=== PATIENT | male | born 1945 | race Caucasian/White ===

== ENCOUNTER → 2017-02-27 | Outpatient (CLI) | payer OTHER ==
--- NOTE | 2017-02-28 07:04 | REP ---
Clinical: Lung screening. Comparison: None Technique: Axial low-dose noncontrast images from the thoracic inlet to the upper abdomen using lung screening technique. Findings: The lung yu demonstrate diffuse moderate emphysematous disease with biapical, right middle lobe and bibasilar scarring. Small focus of atelectasis in the right lower lobe is appreciated. Few small noncalcified nodular densities in the posteromedial left lower lobe measure up to 6 mm. No effusion. Tracheobronchial tree is patent. Impression: Lung-RADS category 3S. Moderate emphysematous disease and chronic scarring along with few small noncalcified nodules in the posteromedial left lower lobe up to 6 mm. Management recommendations includes 6-month low-dose CT follow-up. Signed by Frantz Olsen MD 02/28/2017 06:55 A
== END ==
LOC: M RAD 10:44
PROVIDERS: ATTEND Family Medicine
DX: Z12.2 Encounter for screening for malignant neoplasm of respiratory organs (principal); J43.9 Emphysema, unspecified; F17.210 Nicotine dependence, cigarettes, uncomplicated

== ENCOUNTER → 2017-03-17 | Outpatient (CLI) | payer OTHER ==
--- NOTE | 2017-03-17 09:16 | PFTRPT ---
Tech: Zeenat Ferris [employer] Age: 71 Sex: Male Race: Height: 66.00 Inches Weight: 151.00 Lbs BSA: 1.77 Diagnosis: J44.9 PULMONARY FUNCTION REPORT ORDERING PROVIDER: Calixto Maciel MD DATE OF SERVICE: 02/14/17 NOTE: The patient did use inhalers prior to the study, but did not know which ones. SPIROMETRY: Pre and post bronchodilator study of excellent technical quality. The forced vital capacity is normal. The FEV1 is generally in proportion. The obstructive index is, therefore, normal. FLOW VOLUME LOOP: The expiratory limb of the flow volume loop is reasonably normal. LUNG VOLUMES: The total lung capacity is borderline elevated. The residual volume is in proportion. DIFFUSION CAPACITY: The diffusion capacity is significantly reduced and does not correct for alveolar volume. HEMOGLOBIN: No hemoglobin is available for correction. AIRWAY MECHANICS: Airways resistance and conductance are normal. IMPRESSION: Diffusion capacity impairment. Please correlate clinically. MTDD
== END ==
LOC: M CARPUL 08:28
PROVIDERS: ATTEND Family Medicine
DX: J44.9 Chronic obstructive pulmonary disease, unspecified (principal)

== ENCOUNTER → 2017-09-26 | Outpatient (CLI) | payer OTHER | LOC: M RAD 13:02 | DX: R91.8 Other nonspecific abnormal finding of lung field (principal) | CPT/HCPCS: 71250 ==

== ENCOUNTER → 2017-12-31 | Outpatient (REF) | payer OTHER ==
[2017-12-31 17:20] LABS: HEMATOCRIT 52.3 % (42.0-52.0); HEMOGLOBIN 17.4 g/dl (13.5-17.5); MEAN CORPUSCULAR HEMOGLOBIN 28.8 pg (27.0-33.0); MEAN CORPUSCULAR HGB CONC 33.3 g/dl (32.0-36.5); MEAN CORPUSCULAR VOLUME 86.6 fl (80.0-96.0); PLATELET COUNT, AUTOMATED 264 10^3/uL (150-450); RED BLOOD COUNT 6.04 10^6/uL (4.30-6.10); RED CELL DISTRIBUTION WIDTH 13.9 % (11.5-14.5); WHITE BLOOD COUNT 8.6 10^3/uL (4.0-10.0)
[2017-12-31 17:38] LABS: ESTIMATED AVERAGE GLUCOSE 123 MG/DL (60-110); HEMOGLOBIN A1c 5.9 %
[2017-12-31 18:00] LABS: ALKALINE PHOSPHATASE 81 U/L (45-117); ALT/SGPT 15 U/L (12-78); AST/SGOT 18 U/L (7-37); BILIRUBIN,TOTAL 0.5 MG/DL (0.2-1.0); CALCIUM LEVEL 9.2 MG/DL (8.8-10.2); CARBON DIOXIDE LEVEL 29 MEQ/L (21-32); CHLORIDE LEVEL 107 MEQ/L (98-107); CHOLESTEROL LEVEL 175 MG/DL (<200); CREATININE FOR GFR 1.01 MG/DL (0.70-1.30); GLUCOSE, FASTING 91 MG/DL (70-100); POTASSIUM SERUM 4.5 MEQ/L (3.5-5.1); SODIUM LEVEL 142 MEQ/L (136-145); TOTAL PROTEIN 8.3 GM/DL (6.4-8.2); TRIGLYCERIDES LEVEL 151 MG/DL (<150)
[2017-12-31 18:06] LABS: CREATININE, URINE 23.2 MG/DL; MALB URINE SIEMENS < 5.0 MG/L; MAU/CREAT RATIO 21.5 MCG/MG (0.0-30.0)
[2017-12-31 18:25] LABS: BLOOD UREA NITROGEN 13 MG/DL (7-18)
[2017-12-31 20:45] LABS: ANION GAP 6 MEQ/L (8-16); CHOLESTEROL RISK RATIO 3.645 (<5); HDL CHOLESTEROL 48 MG/DL (>40); LDL CHOLESTEROL 96.8 MG/DL (<100); NON-HDL-C 127 MG/DL
[2017-12-31 20:46] LABS: ALBUMIN 4.4 GM/DL (3.2-5.2); ALBUMIN/GLOBULIN RATIO 1.13 (1.00-1.93)
== END ==
LOC: M SFHCLERA 09:36
DX: I10 Essential (primary) hypertension (principal); F39 Unspecified mood [affective] disorder; E78.5 Hyperlipidemia, unspecified; Z23 Encounter for immunization; Z79.82 Long term (current) use of aspirin; Z79.899 Other long term (current) drug therapy
CPT/HCPCS: 84443

== ENCOUNTER → 2018-06-10 | Outpatient (CLI) | payer OTHER | LOC: M EKG 13:27 | DX: Z01.818 Encounter for other preprocedural examination (principal) | CPT/HCPCS: 93005 ==

== ENCOUNTER 2018-06-16 10:15 | Day surgery (SDC) | payer OTHER ==
[2018-06-16] MEDS ORDERED: PROPOFOL 200 MG/20 ML VIAL As Ordered (10:42)
[2018-06-16] MEDS ORDERED: ROCURONIUM BROMIDE 50 MG/5 ML VIAL As Ordered (10:42)
[2018-06-16] MEDS ORDERED: dexameTHASONE 4 MG/ML 1ML VIAL (J1100) As Ordered (10:43)
[2018-06-16] MEDS ORDERED: ONDANSETRON 4MG/2ML VIAL (J2405) As Ordered (10:43)
[2018-06-16] MEDS ORDERED: LIDOCAINE 2% INJ 100 MG/5 ML SDV (FOR ANES.) As Ordered (10:43)
[2018-06-16] MEDS ORDERED: fentaNYL 250 MCG/5 ML INJECTION (J3010) As Ordered (10:43)
[2018-06-16] MEDS ORDERED: MIDAZOLAM INJ 2 MG/2 ML VIAL (J2250) As Ordered (10:43)
[2018-06-16] MEDS: LR 1,000 ML IV (11:26)
[2018-06-16] MEDS: ceFAZolin SOD 1 GM in D5W MINI-BAG PLUS 50 ML IV (12:32)
[2018-06-16] MEDS ORDERED: PHENYLephrine HCL 500 MCG/5 ML (100MCG/ML) SYRINGE (J2370) As Ordered (12:46)
[2018-06-16] MEDS ORDERED: ePHEDrine SULFATE 25 MG/5 ML(5MG/ML) SYRINGE As Ordered (12:46)
[2018-06-16] MEDS ORDERED: HYDROmorphone HCL 2 MG/ML 1ML VIAL (J1170) As Ordered (13:02)
[2018-06-16] MEDS ORDERED: GLYCOPYRROLATE INJ 0.2 MG/ML 2 ML VIAL As Ordered (13:02)
[2018-06-16] MEDS ORDERED: NEOSTIGMINE 10 MG/10 ML VIAL (J2710) As Ordered (13:02)
[2018-06-16] MEDS ORDERED: KETOROLAC 60 MG/2 ML VIAL (J1885) As Ordered (13:02)
[2018-06-16] MEDS: BUPIVACAINE/EPIN 0.25% 30 ML VIAL As Ordered (13:30)
[2018-06-16] MEDS ORDERED: SUGAMMADEX SODIUM 500 MG/5 ML VIAL (BRIDION) As Ordered (13:33)
[2018-06-16] MEDS ORDERED: LR 1,000 ML IV ×2 (14:15)
[2018-06-16] MEDS ORDERED: PERCOCET 5MG/325MG TAB PO (14:15)
[2018-06-16] MEDS ORDERED: NORCO, ANEXSIA 5/325MG TABLET (HYDROcodone/ACETAMINOPHEN) PO (14:15)
[2018-06-16] MEDS ORDERED: fentaNYL 100 MCG/2 ML INJECTION (J3010) IV (14:15)
[2018-06-16] MEDS ORDERED: ONDANSETRON 4MG/2ML VIAL (J2405) IV ×2 (14:15)
== END 2018-06-16 15:45 | disposition home or self-care (01) ==
LOC: M SDC 10:15
DX: K40.90 Unilateral inguinal hernia, without obstruction or gangrene, not specified as recurrent (principal); E78.00 Pure hypercholesterolemia, unspecified; I10 Essential (primary) hypertension; F41.9 Anxiety disorder, unspecified; F32.9 Major depressive disorder, single episode, unspecified; M54.9 Dorsalgia, unspecified; N40.0 Benign prostatic hyperplasia without lower urinary tract symptoms; Z79.899 Other long term (current) drug therapy; Z79.82 Long term (current) use of aspirin; Z87.81 Personal history of (healed) traumatic fracture; Z72.0 Tobacco use
CPT/HCPCS: 49650

== ENCOUNTER → 2018-10-23 | Outpatient (CLI) | payer MEDICARE ==
[~2018-10-23] MED LIST: AMLO10TA5; ASPI1TAB PO; FLOM0.4C39; LISI40TA; MIRT30TA3; SIMV10TA2
--- NOTE | 2018-10-23 10:57 | REP ---
LOW-DOSE LUNG CANCER SCREENING CHEST CT WITHOUT CONTRAST: HISTORY: Personal history of nicotine dependence. Comparison CT studies are from September 26, 2017 and February 27, 2017. CT FINDINGS: Moderate emphysematous changes are seen hyper inflating the lungs bilaterally particularly in the upper lobes. There are linear fibrotic changes in the right lower lobe and right middle lobe today unchanged from the prior study. There are three adjacent noncalcified pulmonary nodules in the left lower lobe posteriorly and medially behind the descending aorta. These are unchanged in the interval. The largest measures 6 mm. No new pulmonary nodule is appreciated. IMPRESSION: The previously noted left lower lobe nodules have demonstrated over 2 years of stability and can be considered benign. COPD changes. Lung RADS category 2 benign findings. Repeat screening study suggested in 1 year. Electronically Signed by Ari Ross MD 10/23/2018 04:20 P
== END ==
LOC: M RAD 09:12
PROVIDERS: ATTEND Family Medicine
DX: Z12.2 Encounter for screening for malignant neoplasm of respiratory organs (principal); J44.9 Chronic obstructive pulmonary disease, unspecified; Z87.891 Personal history of nicotine dependence

== ENCOUNTER → 2019-01-05 | Outpatient (REF) | payer MEDICARE ==
[~2019-01-05] MED LIST changes: +ACET325C PO; +AMLO10TA5 PO; -ASPI1TAB PO; +ASPI81TA26 PO; +FLOM0.4C39 PO; +LISI40TA PO; +MIRT1TAB16 PO; +SIMV10TA2 PO
[2019-01-05 11:22] LABS: BASO # 0.1 10^3/uL (0.0-0.2); BASO % 1.3 % (0.0-1.0); EOS # 0.1 10^3/uL (0.0-0.50); EOS % 1.6 % (0.0-3.0); HEMATOCRIT 46.5 % (42.0-52.0); HEMOGLOBIN 15.1 g/dl (13.5-17.5); MEAN CORPUSCULAR HEMOGLOBIN 28.3 pg (27.0-33.0); MEAN CORPUSCULAR HGB CONC 32.5 g/dl (32.0-36.5); MEAN CORPUSCULAR VOLUME 87.1 fl (80.0-96.0); MONO # 0.7 10^3/uL (0.0-0.8); MONO % 8.5 % (0.0-5.0); NEUTROPHILS # 4.6 10^3/uL (1.8-7.7); NEUTROPHILS % 53.4 % (36.0-66.0); PLATELET COUNT, AUTOMATED 252 10^3/uL (150-450); RED BLOOD COUNT 5.34 10^6/uL (4.30-6.10); WHITE BLOOD COUNT 8.6 10^3/uL (4.0-10.0)
[2019-01-05 11:44] LABS: HEMOGLOBIN A1c 5.8 %
[2019-01-05 12:03] LABS: ALT/SGPT 11 U/L (12-78); BILIRUBIN,TOTAL 0.4 MG/DL (0.2-1.0); BLOOD UREA NITROGEN 15 MG/DL (7-18); CALCIUM LEVEL 8.7 MG/DL (8.8-10.2); CARBON DIOXIDE LEVEL 28 MEQ/L (21-32); CHLORIDE LEVEL 107 MEQ/L (98-107); CHOLESTEROL LEVEL 149 MG/DL (<200); CHOLESTEROL RISK RATIO 2.865 (<5); CREATININE FOR GFR 1.16 MG/DL (0.70-1.30); GLOMERULAR FILTRATION RATE > 60.0 (>42); GLUCOSE, FASTING 85 MG/DL (70-100); HDL CHOLESTEROL 52 MG/DL (>40); LDL CHOLESTEROL 76 MG/DL (<100); NON-HDL-C 97 MG/DL; POTASSIUM SERUM 4.3 MEQ/L (3.5-5.1); SODIUM LEVEL 141 MEQ/L (136-145); TOTAL PROTEIN 7.6 GM/DL (6.4-8.2); TRIGLYCERIDES LEVEL 105 MG/DL (<150)
== END ==
LOC: M SFHCLERA 08:45
PROVIDERS: ATTEND Family Medicine
DX: I10 Essential (primary) hypertension (principal); E78.5 Hyperlipidemia, unspecified

== ENCOUNTER 2019-01-22 08:49 | Day surgery (SDC) | payer MEDICARE ==
[~2019-01-22] VITALS: Ht 165.1 cm; Wt 67.1 kg
[2019-01-22] MEDS ORDERED: NS 1,000 ML IV ONE (10:00)
[2019-01-22] MEDS ORDERED: PROPOFOL 500 MG/50 ML VIAL As Ordered ONE (10:44)
[2019-01-22] MEDS ORDERED: LIDOCAINE 2% INJ 100 MG/5 ML SDV (FOR ANES.) As Ordered ONE (10:44)
--- NOTE | 2019-01-22 11:23 | ROOR ---
Patient Name: Deuce Reyes Procedure Date: 01/22/2019 10:42 AM Date of : 1945 Age: 73 Room: [facility] Gender: Male Note Status: Finalized Procedure: Colonoscopy Indications: High risk colon cancer surveillance: Personal history of colonic polyps, Surveillance: Personal history of colonic polyps (unknown histology) on last colonoscopy 3 years ago Providers: Kareem CERNA MD Referring MD: Jameson KAUR MD Requesting Provider: Medicines: Monitored Anesthesia Care Complications: No immediate complications. Procedure: Pre-Anesthesia Assessment: - The heart rate, respiratory rate, oxygen saturations, blood pressure, adequacy of pulmonary ventilation, and response to care were monitored throughout the procedure. The Colonoscope was introduced through the anus and advanced to 10 cm into the ileum. The colonoscopy was performed without difficulty. The patient tolerated the procedure well. The quality of the bowel preparation was good. Findings: The perianal and digital rectal examinations were normal. Three sessile polyps were found in the hepatic flexure and ascending colon. The polyps were 5 to 8 mm in size. These polyps were removed with a piecemeal technique using a cold snare. Resection and retrieval were complete. Three sessile polyps were found in the splenic flexure. The polyps were 5 to 6 mm in size. These polyps were removed with a cold snare. Resection and retrieval were complete. Three sessile polyps were found in the descending colon. The polyps were 10 to 15 mm in size. These polyps were removed with a piecemeal technique using a hot snare. Resection and retrieval were complete. A 5 mm polyp was found in the sigmoid colon. The polyp was sessile. The polyp was removed with a hot snare. Resection and retrieval were complete. Multiple medium-mouthed diverticula were found in the sigmoid colon. Internal hemorrhoids were found during retroflexion. The hemorrhoids were medium-sized. Impression: - Three 5 to 8 mm polyps at the hepatic flexure and in the ascending colon, removed piecemeal using a cold snare. Resected and retrieved. - Three 5 to 6 mm polyps at the splenic flexure, removed with a cold snare. Resected and retrieved. - Three 10 to 15 mm polyps in the descending colon, removed piecemeal using a hot snare. Resected and retrieved. - One 5 mm polyp in the sigmoid colon, removed with a hot snare. Resected and retrieved. - Diverticulosis in the sigmoid colon. - Internal hemorrhoids. Recommendation: - Repeat colonoscopy in 1 year for surveillance of multiple adenomas. Kareem Cerna MD Kareem CERNA MD 01/22/2019 11:23:00 AM Electronically signed by Kareem CERNA MD Number of Addenda: 0 Note Initiated On: 01/22/2019 10:42 AM Estimated Blood Loss: Estimated blood loss: none.
[2019-01-22 11:40] VITALS: BP 107/73
== END 2019-01-22 11:48 | disposition home or self-care (01) ==
LOC: M OPP 08:49
PROVIDERS: ATTEND Internal Medicine Gastroenterology
DX: D12.2 Benign neoplasm of ascending colon (principal); D12.3 Benign neoplasm of transverse colon; D12.4 Benign neoplasm of descending colon; D12.5 Benign neoplasm of sigmoid colon; K57.30 Diverticulosis of large intestine without perforation or abscess without bleeding; K64.8 Other hemorrhoids; Z86.010 Personal history of colon polyps

== ENCOUNTER → 2019-10-27 | Outpatient (REF) | payer MEDICARE ==
[~2019-10-27] MED LIST changes: -ACET325C PO; +ACET325C5 PO; -SIMV10TA2; -SIMV10TA2 PO; +SIMV10TA21; +SIMV10TA21 PO
[2019-10-27 17:04] LABS: APPEARANCE, URINE CLEAR (CLEAR); BACTERIA, URINE AUTO NEGATIVE (NEGATIVE); BILIRUBIN, URINE AUTO NEGATIVE (NEGATIVE); BLOOD, URINE BLOOD NEGATIVE (NEGATIVE); COLOR, URINE YELLOW (YELLOW); GLUCOSE, URINE (UA) AUTO NEGATIVE (NEGATIVE); KETONE, URINE AUTO NEGATIVE (NEGATIVE); LEUKOCYTE ESTERASE, URINE AUTO NEGATIVE (NEGATIVE); NITRITE, URINE AUTO NEGATIVE (NEGATIVE); PROTEIN, URINE AUTO NEGATIVE (NEGATIVE); RBC, URINE AUTO 0 /HPF (0-3); SPECIFIC GRAVITY URINE AUTO 1.008 (1.002-1.035); SQUAMOUS EPITHELIAL CELL UR AU 0 /HPF (0-6); UROBILINOGEN, URINE AUTO 0.2 mg/dL (0.0-2.0); WBC, URINE AUTO 0 /HPF (0-3)
[2019-10-27 17:08] LABS: BASO # 0.1 10^3/uL (0.0-0.2); BASO % 1.5 % (0.0-1.0); EOS # 0.1 10^3/uL (0.0-0.5); EOS % 1.6 % (0.0-3.0); HEMATOCRIT 49.8 % (42.0-52.0); HEMOGLOBIN 16.3 g/dl (13.5-17.5); LYMPH # 2.6 10^3/uL (1.5-5.0); MEAN CORPUSCULAR HEMOGLOBIN 29.7 pg (27.0-33.0); MEAN CORPUSCULAR HGB CONC 32.7 g/dl (32.0-36.5); MEAN CORPUSCULAR VOLUME 90.7 fl (80.0-96.0); MONO # 0.7 10^3/uL (0.0-0.8); MONO % 7.9 % (0.0-5.0); NEUTROPHILS # 4.8 10^3/uL (1.5-8.5); NEUTROPHILS % 57.6 % (36.0-66.0); PLATELET COUNT, AUTOMATED 243 10^3/uL (150-450); RED BLOOD COUNT 5.49 10^6/uL (4.30-6.10); WHITE BLOOD COUNT 8.3 10^3/uL (4.0-10.0)
[2019-10-27 17:20] LABS: ALBUMIN 3.8 GM/DL (3.2-5.2); ALT/SGPT 9 U/L (12-78); BILIRUBIN,TOTAL 0.3 MG/DL (0.2-1.0); BLOOD UREA NITROGEN 17 MG/DL (7-18); CALCIUM LEVEL 8.8 MG/DL (8.8-10.2); CARBON DIOXIDE LEVEL 29 MEQ/L (21-32); CHLORIDE LEVEL 109 MEQ/L (98-107); CREATININE FOR GFR 1.01 MG/DL (0.70-1.30); GLOMERULAR FILTRATION RATE > 60.0 (>42); GLUCOSE, FASTING 46 MG/DL (70-100); POTASSIUM SERUM 4.1 MEQ/L (3.5-5.1); SODIUM LEVEL 142 MEQ/L (136-145); TOTAL PROTEIN 7.3 GM/DL (6.4-8.2)
[2019-10-27 17:39] LABS: CREATININE, URINE 44.8 MG/DL; MALB URINE SIEMENS 9.6 MG/L; MAU/CREAT RATIO 21.4 MCG/MG (0.0-30.0)
[2019-10-27 17:47] LABS: HEMOGLOBIN A1c 5.9 %
== END ==
LOC: M SFHCLERA 10:07
PROVIDERS: ATTEND Family Medicine
DX: I10 Essential (primary) hypertension (principal); R63.4 Abnormal weight loss; Z79.899 Other long term (current) drug therapy
CPT/HCPCS: 80053; 81001; 82043; 83036; 84443; 85025; 90732; G0009

== ENCOUNTER → 2019-11-15 | Outpatient (CLI) | payer MEDICARE ==
--- NOTE | 2019-11-15 10:35 | REP ---
Clinical: Lung screening. History smoking. Comparison: 10/23/2018, 02/27/2017 Technique: Axial low-dose noncontrast images from the thoracic inlet to the upper abdomen using lung screening technique. Findings: Advanced emphysematous changes along with stable chronic biapical, right middle lobe, and right lower lobe scarring again noted. New area of presumed linear scarring at the lingula noted. Small nodular focus in the posterior medial left lower lobe (image 54) remain stable compared to 2017. No new acute nodule, consolidation or mass lesion. No effusion. Impression: Lung-RADS category II. No significant nodule or mass. Chronic emphysematous changes and scattered scarring. New area of presumed scarring in the lingula. This does not fall within the Lung-RADS evaluation. Findings appear to represent progressive scarring and 6-9 month follow-up examination may be warranted. Electronically Signed by Frantz Olsen MD 11/15/2019 10:26 A
== END ==
LOC: M RAD 10:02
PROVIDERS: ATTEND Family Medicine
DX: Z12.2 Encounter for screening for malignant neoplasm of respiratory organs (principal); Z87.891 Personal history of nicotine dependence

== ENCOUNTER → 2020-04-20 | Outpatient (CLI) | payer MEDICARE ==
[~2020-04-20] MED LIST changes: +VENL37TA PO
== END ==
LOC: M LABSMTC 11:52
PROVIDERS: ATTEND Anesthesiology
DX: Z20.828 Contact with and (suspected) exposure to other viral communicable diseases (principal); Z11.59 Encounter for screening for other viral diseases

== ENCOUNTER 2020-04-25 12:15 | Day surgery (SDC) | payer MEDICARE ==
[~2020-04-25] VITALS: Ht 170.2 cm; Wt 65.8 kg
[2020-04-25] MEDS ORDERED: propofoL 200 MG/20 ML VIAL As Ordered ONE (13:21)
[2020-04-25] MEDS ORDERED: LIDOCAINE 2% 100MG/5ML SDV (FOR ANES.) As Ordered ONE (13:21)
== END 2020-04-25 14:00 | disposition home or self-care (01) ==
LOC: M OPP 12:15
PROVIDERS: ATTEND Internal Medicine Gastroenterology
DX: Z80.0 Family history of malignant neoplasm of digestive organs (principal); Z86.010 Personal history of colon polyps; I10 Essential (primary) hypertension; E78.5 Hyperlipidemia, unspecified; F32.9 Major depressive disorder, single episode, unspecified; N40.0 Benign prostatic hyperplasia without lower urinary tract symptoms; F17.290 Nicotine dependence, other tobacco product, uncomplicated; Z79.899 Other long term (current) drug therapy
CPT/HCPCS: 88305; G0105

== ENCOUNTER → 2021-01-15 | Outpatient (CLI) | payer MEDICARE ==
[~2021-01-15] MED LIST changes: -AMLO10TA5; -AMLO10TA5 PO; +AMLO1TAB25; +AMLO1TAB25 PO; -LISI40TA; -LISI40TA PO; +LISI40TA4; +LISI40TA4 PO
[2021-01-15 11:33] LABS: BLOOD UREA NITROGEN 14 MG/DL (7-18); CALCIUM LEVEL 9.2 MG/DL (8.8-10.2); CARBON DIOXIDE LEVEL 26 MEQ/L (21-32); CHLORIDE LEVEL 107 MEQ/L (98-107); CHOLESTEROL LEVEL 163 MG/DL (<200); CHOLESTEROL RISK RATIO 2.963 (<5); GLOMERULAR FILTRATION RATE > 60.0 (>42); GLUCOSE, FASTING 78 MG/DL (70-100); HDL CHOLESTEROL 55 MG/DL (>40); LDL CHOLESTEROL 91 MG/DL (<100); NON-HDL-C 108 MG/DL; POTASSIUM SERUM 4.6 MEQ/L (3.5-5.1); SODIUM LEVEL 140 MEQ/L (136-145); TRIGLYCERIDES LEVEL 84 MG/DL (<150)
[2021-01-15 15:31] LABS: HEMOGLOBIN A1c 5.6 %
== END ==
LOC: M LAB 09:29
PROVIDERS: ATTEND Family Medicine
DX: R73.01 Impaired fasting glucose (principal); E78.5 Hyperlipidemia, unspecified; I10 Essential (primary) hypertension

== ENCOUNTER → 2021-01-18 | Outpatient (CLI) | payer MEDICARE ==
--- NOTE | 2021-01-18 10:31 | REP ---
INDICATION: SCREENING FOR LUNG CA. COMPARISON: Comparison chest CT studies are dated November 15, 2019, October 23, 2018, September 26, 2017, and February 27, 2017.. TECHNIQUE: Dose reduction was performed utilizing CARE dose with automated adjustment of the kV and MAS according to patient size; iterative reconstruction, automated exposure control, as well as adaptive dose shielding. Helical scanning is acquired and 3 mm axial images are provided at lung only window settings. FINDINGS: Preliminary digital latin professor radiograph demonstrates an area of linear fibrosis on the right. Axial CT images show emphysematous changes and some bulla lie in the lung apices. There are linear fibrotic changes in the right middle lobe and lingula. These are unchanged. There are nodular opacities in the left lower lobe posteromedially. A cluster of 3 subcentimeter nodules are seen here. These are unchanged from the February 27, 2017 prior study. No other pulmonary nodule is appreciated. There are some fibrotic changes in the right lower lobe posteriorly. No endobronchial disease is seen. Exam is otherwise unremarkable. There is vascular calcification. IMPRESSION: Lung RADS category 2 findings. Repeat screening exam would be indicated in 1 year. <Electronically signed by Mj Ross > 01/18/21 [id number]
== END ==
LOC: M RAD 09:51
PROVIDERS: ATTEND Family Medicine
DX: Z12.2 Encounter for screening for malignant neoplasm of respiratory organs (principal); Z87.891 Personal history of nicotine dependence; R91.8 Other nonspecific abnormal finding of lung field

== ENCOUNTER → 2021-07-13 | Outpatient (CLI) | payer MEDICARE ==
--- NOTE | 2021-07-13 10:26 | REP ---
INDICATION: AAA SCREENING COMPARISON: None. TECHNIQUE: Real time wood scale ultrasound examination using curved array transducer. FINDINGS: The abdominal aorta demonstrates scattered atheromatous plaquing without evidence for aneurysm. Proximal aorta: 2.8 x 2.5 cm Aorta at renal arteries: 2.4 x 2.4 cm Mid aorta: 1.6 x 2.3 cm Distal aorta: 1.9 x 2.3 cm Right common iliac artery: 1.1 x 0.9 cm Left common iliac artery: 1.2 x 0.9 cm IMPRESSION: Atherosclerotic changes. No aneurysm. <Electronically signed by Frantz Olsen > 07/13/21 [id number]
== END ==
LOC: M RAD 09:54
PROVIDERS: ATTEND Family Medicine
DX: F17.211 Nicotine dependence, cigarettes, in remission (principal)

== ENCOUNTER → 2022-01-03 | Outpatient (CLI) | payer MEDICARE ==
[2022-01-03 11:14] LABS: BASO # 0.1 10^3/uL (0.0-0.2); BASO % 1.3 % (0.0-1.0); EOS # 0.2 10^3/uL (0.0-0.5); HEMATOCRIT 49.4 % (42.0-52.0); HEMOGLOBIN 16.4 g/dl (13.5-17.5); LYMPH # 2.7 10^3/uL (1.5-5.0); LYMPH % 29.8 % (24.0-44.0); MEAN CORPUSCULAR HEMOGLOBIN 29.5 pg (27.0-33.0); MEAN CORPUSCULAR HGB CONC 33.2 g/dl (32.0-36.5); MEAN CORPUSCULAR VOLUME 88.8 fl (80.0-96.0); MONO # 0.6 10^3/uL (0.0-0.8); MONO % 6.6 % (2.0-8.0); NEUTROPHILS # 5.4 10^3/uL (1.5-8.5); PLATELET COUNT, AUTOMATED 223 10^3/uL (150-450); RED BLOOD COUNT 5.56 10^6/uL (4.30-6.10)
[2022-01-03 12:07] LABS: ALBUMIN 3.7 GM/DL (3.2-5.2); ALT/SGPT 12 U/L (12-78); BILIRUBIN,TOTAL 0.5 MG/DL (0.2-1.0); BLOOD UREA NITROGEN 21 MG/DL (7-18); CALCIUM LEVEL 9.2 MG/DL (8.8-10.2); CARBON DIOXIDE LEVEL 31 MEQ/L (21-32); CHLORIDE LEVEL 103 MEQ/L (98-107); GLOMERULAR FILTRATION RATE > 60.0 (>42); GLUCOSE, FASTING 81 MG/DL (70-100); POTASSIUM SERUM 3.9 MEQ/L (3.5-5.1); SODIUM LEVEL 137 MEQ/L (136-145); TOTAL 25(OH) VITAMIN D 16.5 NG/ML (30.0-100.0); TOTAL PROTEIN 7.5 GM/DL (6.4-8.2); VITAMIN B12 LEVEL 316 PG/ML (247-911)
== END ==
LOC: M LAB 10:09
PROVIDERS: ATTEND Family Medicine
DX: R53.83 Other fatigue (principal)

== ENCOUNTER → 2022-01-25 | Outpatient (CLI) | payer MEDICARE | LOC: M RAD 09:20 | PROVIDERS: ATTEND Family Medicine | DX: Z12.2 Encounter for screening for malignant neoplasm of respiratory organs (principal); Z87.891 Personal history of nicotine dependence; J44.9 Chronic obstructive pulmonary disease, unspecified ==

== ENCOUNTER 2023-09-16 11:39 | Day surgery (SDC) | payer MEDICARE ==
[~2023-09-16] VITALS: Ht 170.2 cm; Wt 59.0 kg
[~2023-09-16 11:39] MED LIST changes: +NS 1,000 ML IV ONE
[2023-09-16] MEDS ORDERED: LIDOCAINE 2% 100MG/5ML SDV (FOR ANES.) As Ordered ONE (12:21)
[2023-09-16 12:25] VITALS: TEMP 97.1; O2SAT 94
[2023-09-16 13:32] VITALS: BP 147/78
== END 2023-09-16 13:35 | disposition home or self-care (01) ==
LOC: M OPP 11:39
PROVIDERS: ATTEND Internal Medicine Gastroenterology
DX: Z86.010 Personal history of colon polyps (principal); Z80.0 Family history of malignant neoplasm of digestive organs; I10 Essential (primary) hypertension; Z53.09 Procedure and treatment not carried out because of other contraindication